=== PATIENT | female | born 1975 | race Two or more races ===

== ENCOUNTER 2017-10-06 14:04 | Outpatient (CLI) | payer OTHER | END 2017-10-06 14:13 | disposition home or self-care (01) | LOC: MAMO-SONO 14:04 | DX: Z12.31 Encounter for screening mammogram for malignant neoplasm of breast (principal); N60.11 Diffuse cystic mastopathy of right breast ==

== ENCOUNTER 2018-05-24 17:32 | Outpatient (CLI) | payer OTHER | END 2018-05-24 18:17 | disposition home or self-care (01) | LOC: RAD 17:32 | DX: M25.562 Pain in left knee (principal); S80.02XA Contusion of left knee, initial encounter ==

== ENCOUNTER 2020-12-29 08:29 | Outpatient (CLI) | payer OTHER | END 2020-12-29 08:48 | disposition home or self-care (01) | LOC: MAMO-SONO 08:29 | PROVIDERS: ATTEND Obstetrics & Gynecology | DX: N60.21 Fibroadenosis of right breast (principal); N60.22 Fibroadenosis of left breast; Z12.31 Encounter for screening mammogram for malignant neoplasm of breast ==

== ENCOUNTER 2024-08-21 07:48 | Outpatient (CLI) | payer OTHER | END 2024-08-21 07:55 | disposition home or self-care (01) | LOC: MAMO-SONO 07:48 | DX: R10.2 Pelvic and perineal pain (principal); Z12.31 Encounter for screening mammogram for malignant neoplasm of breast; N64.4 Mastodynia; Z80.3 Family history of malignant neoplasm of breast ==